=== PATIENT | female | born 1985 | race Hispanic/Latino ===

== ENCOUNTER 2016-07-09 10:30 | Inpatient (IN) | payer OTHER ==
--- NOTE | 2016-07-09 11:34 | Emergency Department Report ---
Stated Complaint: CATHETER PULLED OUT Time Seen by Provider: 07/09/16 11:29 - HPI History of Present Illness: Patient reports her left nephrostomy catheter was caught between the door as she slammed it last night. She also c/o hematuria, fever, abdominal and back pain, N/V and right leg pain that started yesterday. - ROS Review of Systems: all other systems are unremarkable except for documentation in HPI - Exam Physical Exam: Gen: well nourished and developed, NAD, uncomfortable Abd: soft, nondistended, diffuse tenderness, bowel sounds present, no rebound, guarding or rigid MSE screening note: Focused history and physical exam performed. Due to findings the following was ordered: laboratory studies ordered ED Disposition for MSE Condition: Stable
[2016-07-09 11:57] LABS: Basophils % (Auto) 0.7 % (0.0-1.8); Eosinophils % (Auto) 0.6 % (0.0-4.3); Hematocrit 38.2 % (30.3-42.9); Hemoglobin 12.3 gm/dl (10.1-14.3); Mean Corpuscular HGB Conc 32 % (30-34); Mean Corpuscular Hemoglobin 27 pg (28-32); Mean Corpuscular Volume 83 fl (79-97); Platelet Count 246 K/mm3 (140-440); Red Blood Count 4.61 M/mm3 (3.65-5.03)
[2016-07-09] MEDS ORDERED: ZOFRAN ODT ONE (12:07)
[2016-07-09] MEDS ORDERED: ZOFRAN ODT PO ONE (12:09)
[2016-07-09 12:11] LABS: Alanine Aminotransferase 7 units/L (7-56); Albumin 3.5 g/dL (3.9-5); Albumin/Globulin Ratio 0.9 %; Alkaline Phosphatase 81 units/L (35-129); Anion Gap 19 mmol/L; BUN/Creatinine Ratio 11.25; Bilirubin,Total 0.5 mg/dL (0.1-1.2); Blood Urea Nitrogen 9 mg/dL (7-17); Calcium 8.7 mg/dL (8.4-10.2); Carbon Dioxide 22 mmol/L (22-30); Chloride 97.7 mmol/L (98-107); Glucose 162 mg/dL (65-100); Lipase 15 units/L (13-60); Potassium 3.2 mmol/L (3.6-5.0); Sodium 135 mmol/L (137-145); Total Protein 7.4 g/dL (6.3-8.2)
[2016-07-09 13:27] LABS: Bacteria,Urine 1+ /HPF (Negative); Bilirubin,Urine NEG (Negative); Blood,Urine MOD (Negative); Ketones,Urine NEG (Negative); Leukocyte Esterase,Urine LG (Negative); Mucus,Urine 2+ /HPF; Nitrite,Urine POS (Negative); Urobilinogen,Urine < 2.0 mg/dL (<2.0)
[2016-07-09 13:33] LABS: WBC,Urine > 182.0 /HPF (0.0-6.0)
[2016-07-09] MEDS ORDERED: TYLENOL ONE (21:23)
[2016-07-09] MEDS ORDERED: ZOFRAN IV ONE (21:41)
[2016-07-09] MEDS ORDERED: SUBLIMAZE IV ONE ×2 (21:41→23:52)
[2016-07-09] MEDS ORDERED: LEVAQUIN 750MG/150ML 150 ML IV ONE (21:42)
--- NOTE | 2016-07-09 21:55 | Emergency Department Report ---
HPI - General Chief Complaint: Urogenital-Female Time Seen by Provider: 07/09/16 21:27 - HPI HPI: Room 16 The patient is a 30-year-old female presenting with a chief complaint of left flank pain. The patient had a history of obstructive hydronephrosis and subsequently had a left nephrostomy tube placed by Dr. Wood 06/17/2016. The patient states she has not followed up with a urologist since her discharge from the hospital. The patient states last night at 20:30 her nephrostomy bag accidentally got caught on a door and pulled her nephrostomy tube. The patient states she immediately had pain at the nephrostomy tube site but it never resolved. The patient now complains of pain in bilateral flanks. Patient denies any history of fever. The patient gives her pain a score of 10/10 Location: Bilateral flanks Duration: Romario since 20:30 last night Quality: Sharp Severity: 10/10 Modifying factors: Unknown Context: [see above] Mode of transportation: EMS ED Past Medical Hx - Past Medical History Hx Kidney Stones: Yes Additional medical history: Gallbladder - Surgical History Additional Surgical History: ECTOPIC --salpingectomy; renal stent. Left nephrostomy tube placed by Dr. Wood 06/17/2016 - Family History Family history: no significant - Social History Smoking Status: Current Every Day Smoker (1/2 pack per day) Substance Use Type: None - Medications Home Medications: Home Medications Medication Instructions Recorded Confirmed Last Taken Type Ciprofloxacin HCl [Ciprofloxacin 500 mg PO BID #20 tablet 06/20/16 Unknown Rx TAB] HYDROcodone/APAP 5-325 [[place] 1 each PO Q6HR PRN #18 tablet 06/20/16 Unknown Rx 5/325] Sennosides/Docusate Sodium 1 each PO BID #14 tablet 06/20/16 Unknown Rx [Sennosides-Docusate Sodium Tab] ED Review of Systems ROS: Stated complaint: CATHETER PULLED OUT Other details as noted in HPI Comment: All other systems reviewed and negative Constitutional: denies: chills, fever Eyes: denies: eye pain, eye discharge, vision change ENT: denies: ear pain, throat pain Respiratory: denies: cough, shortness of breath, wheezing Cardiovascular: denies: chest pain, palpitations Endocrine: no symptoms reported Gastrointestinal: abdominal pain Genitourinary: other Musculoskeletal: back pain Skin: denies: rash, lesions Neurological: denies: headache, weakness, paresthesias Psychiatric: denies: anxiety, depression Hematological/Lymphatic: denies: easy bleeding, easy bruising Physical Exam - Physical Exam Vital Signs: Vital Signs 07/09/16 07/09/16 07/09/16 11:22 20:33 21:42 Temperature 98.2 F 98.8 F Pulse Rate 109 H 115 H 120 H Respiratory 20 18 22 Rate Blood Pressure 121/80 115/69 Blood Pressure 142/125 [Left] O2 Sat by Pulse 96 99 98 Oximetry Physical Exam: GENERAL: The patient is well-developed well-nourished female lying on stretcher. In moderate discomfort. [] HEENT: Normocephalic. Atraumatic. Extraocular motions are intact. Patient has moist mucous membranes. NECK: Supple. Trachea Midline CHEST/LUNGS: Clear to auscultation. There is no respiratory distress noted. HEART/CARDIOVASCULAR: Regular. There is tachycardia. There is no gallop rub or murmur. ABDOMEN: Abdomen is soft, discomfort to palpation in the left lower quadrant. Patient has normal bowel sounds. There is no abdominal distention. SKIN: There is no rash. There is no diaphoresis. NEURO: The patient is awake, alert, and oriented. The patient is cooperative. The patient has normal speech MUSCULOSKELETAL: There is no evidence of acute injury. BACK: Left nephrostomy tube in place. There is no drainage bag present. Nephrostomy tube appears to be tied in a knot (the patient states she was not aware of this and she did not do it.) ED Course Vital Signs 07/09/16 07/09/16 07/09/16 11:22 20:33 21:42 Temperature 98.2 F 98.8 F Pulse Rate 109 H 115 H 120 H Respiratory 20 18 22 Rate Blood Pressure 121/80 115/69 Blood Pressure 142/125 [Left] O2 Sat by Pulse 96 99 98 Oximetry - Consultations Consultation #1: 07/09/16 23:45 Urology paged- case discussed with Dr. Avalos 07/10/16 00:06 ED Medical Decision Making - Lab Data Result diagrams: 07/09/16 11:45 07/09/16 11:36 Laboratory Tests 07/09/16 07/09/16 07/09/16 11:36 11:45 11:45 WBC 14.0 H RBC 4.61 Hgb 12.3 Hct 38.2 MCV 83 MCH 27 L MCHC 32 RDW 17.0 H Plt Count 246 Lymph % (Auto) 13.6 Mcdowell % (Auto) 4.6 Eos % (Auto) 0.6 Baso % (Auto) 0.7 Lymph # 1.9 Mcdowell # 0.6 Eos # 0.1 Baso # 0.1 Seg Neutrophils % 80.5 H Seg Neutrophils # 11.2 H Sodium 135 L Potassium 3.2 L Chloride 97.7 L Carbon Dioxide 22 Anion Gap 19 BUN 9 Creatinine 0.8 Estimated GFR > 60 BUN/Creatinine Ratio 11.25 Glucose 162 H Calcium 8.7 Total Bilirubin 0.5 AST 9 ALT 7 Alkaline Phosphatase 81 Total Protein 7.4 Albumin 3.5 L Albumin/Globulin Ratio 0.9 Lipase 15 HCG, Quant < 2 Urine Color Urine Turbidity Urine pH Ur Specific Bonnie Urine Protein Urine Glucose (UA) Urine Ketones Urine Blood Urine Nitrite Urine Bilirubin Urine Urobilinogen Ur Leukocyte Esterase Urine WBC (Auto) Urine RBC (Auto) U Epithel Cells (Auto) Urine Bacteria (Auto) Urine Mucus 07/09/16 12:52 WBC RBC Hgb Hct MCV MCH MCHC RDW Plt Count Lymph % (Auto) Mcdowell % (Auto) Eos % (Auto) Baso % (Auto) Lymph # Mcdowell # Eos # Baso # Seg Neutrophils % Seg Neutrophils # Sodium Potassium Chloride Carbon Dioxide Anion Gap BUN Creatinine Estimated GFR BUN/Creatinine Ratio Glucose Calcium Total Bilirubin AST ALT Alkaline Phosphatase Total Protein Albumin Albumin/Globulin Ratio Lipase HCG, Quant Urine Color Yellow Urine Turbidity Cloudy Urine pH 6.0 Ur Specific Bonnie 1.018 Urine Protein 100 mg/dl Urine Glucose (UA) Neg Urine Ketones Neg Urine Blood Mod Urine Nitrite Pos Urine Bilirubin Neg Urine Urobilinogen < 2.0 Ur Leukocyte Esterase Lg Urine WBC (Auto) > 182.0 H Urine RBC (Auto) 178.0 U Epithel Cells (Auto) 43.0 H Urine Bacteria (Auto) 1+ Urine Mucus 2+ - Radiology Data Radiology results: report reviewed (CT abdomen and pelvis), image reviewed (CT abdomen pelvis) CT abdomen and pelvis (read by radiologist)-left nephrostomy tube is identified and has a proper position of the pigtail. No hydronephrosis is noted. Mild hydroureter down to a 7 mm stone just above the left ureterovesicular junction. Bilateral renal calculi are noted. - Differential Diagnosis nephrostomy tube displacement, pyelonephritis Critical care attestation.: If time is entered above; I have spent that time in minutes in the direct care of this critically ill patient, excluding procedure time. ED Disposition Clinical Impression: Acute pyelonephritis, Kidney stone, Obstructive uropathy, Leukocytosis, Tachycardia Disposition: OP ADMITTED IP TO THIS HOSP Is pt being admited?: Yes Does the pt Need Aspirin: No Condition: Fair Referrals: PRIMARY CARE, [Primary Care Provider] - 3-5 Days Time of Disposition: 23:56 (hospitalist notified)
[2016-07-09] MEDS ORDERED: BENADRYL IV ONE (22:21)
--- NOTE | 2016-07-09 23:26 | Cat Scan Report ---
FINAL REPORT PROCEDURE: CT ABDOMEN PELVIS WO CON TECHNIQUE: Computerized axial tomography of the abdomen and pelvis was performed without intravenous contrast. This study is performed without intravascular contrast material and its sensitivity for abdominal and pelvic pathology, including neoplasms, inflammation, abscess, free fluid, thrombosis, arterial dissection and infarction, is reduced compared with a contrast enhanced study. HISTORY: accidentally pulled left nephrostomy tube. Pain COMPARISON: 06/17/2016 FINDINGS: Visualized lower thorax: There is mild atelectasis in the right lower lung.. Liver: Normal size and attenuation. Spleen: Normal size and attenuation. Gallbladder and biliary system: Normal. Pancreas: Normal. Adrenals: Normal. Kidneys: There is a left nephrostomy tube identified. The positioning of the pigtail is appropriate. No hydronephrosis is seen at this time. Catheter is identified extending from the left posterior flank region. Minimal soft tissue swelling at the catheter exit is noted. There are few small calcifications in the corticomedullary region of the left kidney these measure between 1 and 3 millimeters. Slight prominence of the left ureter is identified down to a 7 millimeter calcification near the left ureteral vesical junction. The right renal size is normal. There are few parapelvic cysts surround the right collecting system. There are few small 1-2 millimeter calcifications in the corticomedullary region of the right kidney. These have not changed.. GI tract: Normal. Lymph nodes and mesentery: Normal. Vasculature: Normal. Bladder: Within the urinary bladder there is a large calcification posteriorly. This has not changed and may represent a large bladder calculi.. Reproductive organs: Normal. Peritoneum: No free fluid. Musculoskeletal structures: No significant abnormality. Other: None. IMPRESSION: Left nephrostomy tube is identified and has a proper position of the pigtail. No hydronephrosis is noted. Mild hydroureter down to a 7 millimeter stone just above the left ureteral vesical junction. Bilateral renal calculi are noted as discussed..
[2016-07-09] MEDS ORDERED: NACL 0.9% 1000 ML 1,000 ML IV ONE (23:45)
[2016-07-10] MEDS ORDERED: MORPHINE IV ONE (00:06)
[2016-07-10] MEDS ORDERED: MORPHINE ONE (00:15)
--- NOTE | 2016-07-10 00:46 | History and Physical Report ---
History of Present Illness Date of examination: 07/10/16 History of present illness: 30-year-old woman with a history of kidney stones, stent placement comes to the emergency room with complaints of nausea vomiting, fever and chills. Patient has a left nephrostomy tube, she states that the bag was caught in the car door , it was ripped. This was replaced in the emergency room Patient denies chest pain, palpitation, shortness of breath, cough, abdominal pain, hematochezia, dysuria, frequency, focal weakness, dysarthria,polydipsia polyuria, hot or cold intolerance, easy bruisability, or rash or bleeding from mucosal membrane, rhinorrhea, epistaxis, earache, tinnitus, blurry vision, eye discharge, anxiety, depression. Other review of systems negative PAST SURGICAL HISTORY: None SOCIAL HISTORY: The today, no alcohol or drugs FAMILY HISTORY: Hypertension Medications and Allergies Allergies Allergy/AdvReac Type Severity Reaction Status Date / Time amoxicillin [Amoxicillin] Allergy Hives Verified 01/21/15 20:30 ketorolac tromethamine Allergy Hives Verified 10/13/15 14:48 [From Toradol] Home Medications Medication Instructions Recorded Confirmed Last Taken Type No Known Home Medications [No 07/10/16 07/10/16 Unknown History Reported Home Medications] Exam - Physical Exam Narrative exam: Gen. appearance: Patient lying in bed, no apparent distress HEENT: Normocephalic, atraumatic, pupils equally round and reactive to light, extraocular movement intact, and no sclericterus,. No JVD or thyromegaly or nodule,neck supple, no carotid bruit ,mucous membranes moist, no exudate or erythema Heart: S1, S2, regular rate and rhythm Lungs: Clear to auscultation bilaterally, breathing comfortable Abdomen: Positive bowel sounds, nontender, nondistended, no organomegaly Extremity: No edema, cyanosis, clubbing Skin: No rash, nodules, warm, dry Neuro: Oriented 3, cranial nerves II-12 intact, speech is fluent, motor and sensory intact - Constitutional Vitals: Temp Pulse Resp BP Pulse Ox 98.8 F 120 H 18 142/125 98 07/09/16 20:33 07/09/16 21:42 07/10/16 00:23 07/09/16 21:42 07/09/16 21:42 Results - Labs CBC & Chem 7: 07/09/16 11:45 07/09/16 11:36 Labs: Abnormal lab results 07/09/16 07/09/16 07/09/16 Range/Units 11:36 11:45 12:52 WBC 14.0 H (4.5-11.0) K/mm3 MCH 27 L (28-32) pg RDW 17.0 H (13.2-15.2) % Seg Neutrophils % 80.5 H (40.0-70.0) % Seg Neutrophils # 11.2 H (1.8-7.7) K/mm3 Sodium 135 L (137-145) mmol/L Potassium 3.2 L (3.6-5.0) mmol/L Chloride 97.7 L (98-107) mmol/L Glucose 162 H (65-100) mg/dL Albumin 3.5 L (3.9-5) g/dL Urine WBC (Auto) > 182.0 H (0.0-6.0) /HPF U Epithel Cells (Auto) 43.0 H (0-13.0) /HPF - Imaging and Cardiology CT scan - abdomen: report reviewed CT scan - pelvis: report reviewed Assessment and Plan Acute pyelonephritis History of kidney stones with nephrostomy tube Admit to medicine Start IV fluid, IV antibiotics, follow cultures Start IV pain medication, DVT prophylaxis
--- NOTE | 2016-07-10 01:23 | Admit Criteria Form ---
Admission Criteria Documentation: PYELONEPHRITIS, ACUTE Clinical Indications for Admission to Inpatient Care (Place 'X' for any and all applicable criteria): Admission is indicated for ANY ONE of the following 1,2,3,4,5 [ ]I. Outpatient treatment has failed or is not feasible (eg, multidrug- resistant organism).5 [ ]II. beyond 24 weeks' gestation6 [ ]III. Hemodynamic instability [ ]IV. Immunocompromised state (eg, AIDS, diabetes, sickle cell disease) [ X]V. Known renal or urologic abnormalities (eg, indwelling catheter, structural abnormalities, renal calculi, urinary stent, previous urologic surgery) [ ]. Condition that requires drainage procedure, including ANY ONE of the following: [ ]a) Urinary obstruction [ ]b) Pyelitis [ ]c) Pyonephrosis [ ]d) Renal or perinephric abscess [ ]e) Emphysematous pyelonephritis 7 [ ]VII. Inpatient admission required rather than observation care (Also use Pyelonephritis, Acute: Observation Care Criteria as appropriate) because of ANY ONE of the following: [ ]a) High fever or infection requiring inpatient admission as indicated by ANY ONE of ,12 [ ]A. Documented bacteremia [ ]B. Temp>104.9 [id number] (oral) [ ]C. Temp>103.10F (oral) or <96.80F (rectal) that does not respond to all emergency treatment [ ]b) Acute renal failure [ ]c) Other significant finding or clinical condition judged not to be within the scope of observation care [ ]d) IV fluid to replace significant ongoing (eg, for over 24hrs) losses (> 3 L/m2 per day) [ ]e) Other condition,treatment or monitoring requiring inpatient admission The original [email or web address] content created by [employer] has been revised. The portions of the content which have been revised are identified through the use of italic text or in bold, and [facility] has neither reviewed nor approved the modified material. All other unmodified content is copyright [employer] [email or web address]. Please see references footnoted in the original [employer] [email or web address] edition 2016 Admission Criteria Met: Yes
[2016-07-10] MEDS ORDERED: MILK OF MAGNESIA PO PRN (01:33)
[2016-07-10] MEDS ORDERED: DULCOLAX PR PRN (01:33)
[2016-07-10] MEDS: TYLENOL PO PRN ×2 (02:31→16:15)
[2016-07-10] MEDS: MORPHINE IV PRN ×4 (06:36→20:34)
[2016-07-10] MEDS: NACL 0.9% 1000 ML 1,000 ML IV SCH ×2 (08:52→20:35)
[2016-07-10] MEDS: LOVENOX SUB-Q SCH (09:22)
--- NOTE | 2016-07-10 12:53 | Consultation ---
History of Present Illness - Reason for Consult Consult date: 07/10/16 - History of Present Illness 30-year-old woman with a history of kidney stones, stent placement comes to the emergency room with complaints of nausea vomiting, fever and chills. Patient has a left nephrostomy tube, she states that the bag was caught in the car door , it was ripped. This was replaced in the emergency room Patient denies chest pain, palpitation, shortness of breath, cough, abdominal pain, hematochezia, dysuria, frequency, focal weakness, dysarthria,polydipsia pt reports lots of leakage around tube urine clear today need nephrostogram & rads department to eval tubing Medications and Allergies Allergies Allergy/AdvReac Type Severity Reaction Status Date / Time amoxicillin [Amoxicillin] Allergy Hives Verified 01/21/15 20:30 ketorolac tromethamine Allergy Hives Verified 10/13/15 14:48 [From Toradol] Home Medications Medication Instructions Recorded Confirmed Last Taken Type No Known Home Medications [No 07/10/16 07/10/16 Unknown History Reported Home Medications] Active Meds: Active Medications Acetaminophen (Tylenol) 650 mg PO Q4H PRN PRN Reason: Pain MILD(1-3)/Fever >100.5/FINN Last Admin: 07/10/16 02:31 Dose: 650 mg Bisacodyl (Dulcolax) 10 mg [place] QDAY PRN PRN Reason: Constipation unrelieved by MOM Enoxaparin Sodium (Lovenox) 40 mg SUB-Q QDAY [facility] Last Admin: 07/10/16 09:22 Dose: 40 mg Levofloxacin/Dextrose (Levaquin 750mg/150ml) 150 mls @ 100 mls/hr IV Q24H [facility] Sodium Chloride (Nacl 0.9% 1000 Ml) 1,000 mls @ 75 mls/hr IV DIRECT [facility] Last Admin: 07/10/16 08:52 Dose: 75 mls/hr Magnesium Hydroxide (Milk Of Magnesia) 30 ml PO Q4H PRN PRN Reason: Constipation Morphine Sulfate (Morphine) 2 mg IV Q4H PRN PRN Reason: Pain, Moderate (4-6) Last Admin: 07/10/16 10:31 Dose: 2 mg Ondansetron HCl (Zofran) 4 mg IV Q8H PRN PRN Reason: N/V unrelieved by Reglan Exam - Constitutional Vitals: Temp Pulse Resp BP Pulse Ox 102.6 F H 123 H 20 91/56 99 07/10/16 02:00 07/10/16 02:00 07/10/16 02:31 07/10/16 02:00 07/10/16 09:45 Results - Labs CBC & Chem 7: 07/09/16 11:45 07/09/16 11:36
--- NOTE | 2016-07-10 14:00 | Consultation ---
REASON FOR CONSULTATION: Left kidney stone. REFERRING PHYSICIAN: Genevieve Ohara MD HISTORY OF PRESENT ILLNESS: This patient is a 30-year-old female, known to our service for kidney stones. She had a nephrostomy tube placed on 06/17/[address] Wood. She is to follow up with her primary urologist in [place], however, she incidentally pulled the nephrostomy tube, it was caught in a door, and concerned for dislodgement and increased pain. PAST MEDICAL HISTORY: Kidney stone. 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 HABITS: She is a half pack smoker a day. MEDICATIONS: Cipro and [place]. ALLERGIES: She has allergies to amoxicillin and Toradol. PHYSICAL EXAMINATION: GENERAL: She is alert and oriented. VITAL SIGNS: Temperature 98.8, respirations 22, pulse 120, BP 142/69. BACK: No CVA tenderness. At this time, tube appears, has a clean dressing and caryl colored urine. LABORATORY DATA: BUN and creatinine of 9 and 0.8 respectively. Hemoglobin and hematocrit of 12 and 34 respectively, white count 14,000, platelets 246,000. ASSESSMENT: Left flank plain, left ureteral stone, status post nephrostomy tube, possible dislodgement, leukocytosis with a white count 14,000. PLAN: Recommend nephrostomy tube for reevaluation. JOB# [id number] [facility]
--- NOTE | 2016-07-10 15:46 | Fluoroscopy Report ---
FLUOROSCOPY NEPHROSTOGRAM EXISTING LEFT: INDICATION: Fever. Evaluate position. COMPARISON: 07/09/2016 CT. FINDINGS: Left nephrostogram performed. 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 Approximately 3.5 cm lamellated urinary bladder calculus and also an approximately 1.1 cm adjacent left hemipelvic calcification corresponding to left distal ureteral calculus again noted. Subsequent hand injection of approximately 40 cc of Omnipaque 300 demonstrates left nephrostomy tube tip in the upper pole collecting system. Mild blunting of left renal calyces with slight fullness. Left proximal to mid ureter opacified with slightly prominent caliber. Approximately 4 cm left distal ureteral extent from about the level of the calculus distally upto the bladder base attenuated with intermittent emptying observed under real-time fluoroscopy. CONCLUSION: 1. Caliber attenuation of left distal ureter with approximately 1 cm slightly obstructing calculus again noted as also a large bladder calculus, similar to recent CT. 2. Patent left nephrostomy tube with its tip in the upper pole collecting system. Thank you for the opportunity to participate in this patient's care.
[2016-07-10] MEDS: ZOFRAN IV PRN (17:34)
[2016-07-10] MEDS ORDERED: LEVAQUIN 750MG/150ML 150 ML IV SCH (22:00)
[2016-07-11] MEDS: MORPHINE IV PRN ×6 (00:10→21:03)
[2016-07-11] MEDS: TYLENOL PO PRN ×2 (01:21→17:37)
[2016-07-11 06:14] LABS: Basophils % (Auto) 0.4 % (0.0-1.8); Eosinophils % (Auto) 0.1 % (0.0-4.3); Hematocrit 32.8 % (30.3-42.9); Hemoglobin 10.9 gm/dl (10.1-14.3); Mean Corpuscular HGB Conc 33 % (30-34); Mean Corpuscular Hemoglobin 27 pg (28-32); Mean Corpuscular Volume 82 fl (79-97); Platelet Count 167 K/mm3 (140-440); White Blood Count 9.4 K/mm3 (4.5-11.0)
[2016-07-11 06:29] LABS: Anion Gap 18 mmol/L; BUN/Creatinine Ratio 8.88; Blood Urea Nitrogen 8 mg/dL (7-17); Calcium 8.4 mg/dL (8.4-10.2); Carbon Dioxide 26 mmol/L (22-30); Chloride 97.3 mmol/L (98-107); Glucose 99 mg/dL (65-100); Potassium 3.3 mmol/L (3.6-5.0); Sodium 138 mmol/L (137-145)
[2016-07-11] MEDS: LOVENOX SUB-Q SCH (09:09)
[2016-07-11] MEDS: ZOFRAN IV PRN ×2 (09:10→17:37)
--- NOTE | 2016-07-11 14:04 | Event Note ---
Date: 07/11/16 30-year-old woman with a history of kidney stones, stent placement comes to the emergency room with complaints of nausea vomiting, fever and chills. Patient has a left nephrostomy tube, she states that the bag was caught in the car door , it was ripped. This was replaced in the emergency room Patient denies chest pain, palpitation, shortness of breath, cough, abdominal pain, hematochezia, dysuria, frequency, focal weakness, dysarthria,polydipsia pt reports lots of leakage around tube urine clear today nephrostogram - per tube in good position, contrast drains to distal stone pt stabe for discharge from gu standpoint f/u with her primary urologist
--- NOTE | 2016-07-11 16:41 | Progress Note ---
Assessment and Plan Assessment and plan: Sepsis likely due to acute pyelonephritis Acute left pyelonephritis History of kidney stones with nephrostomy tube placement Hypokalemia, acute due to poor oral intake Plan: nephrostogram - per tube in good position, contrast drains to distal stone Urology recommended to follow up outpatient with her urologist about the nephrostomy tube management Continue IV fluid, IV antibiotics, follow cultures, IV pain medication, DVT prophylaxis Patient still spiking fever today, If symptom improves plan to discharge tomorrow History Interval history: Patient seen and examined. Medical records and medication list reviewed. No acute event overnight noted by the RN. Patient continued to complain of left flank pain. Patient continued to spike fever. Noted nephrostomy to without the bag and continuously leaking urine Nephrostomy bag was placed in the ER but overnight she took it out Patient is demanding to take the nephrostomy tube output as she stated that, tube is causing her more pain Discussed plan of care at bedside with patient. Hospitalist Physical - Physical exam Narrative exam: GENERAL: Obese female lying on bed appeared to be in moderate discomfort. She is very tearful. HEENT: Normocephalic. Atraumatic. No conjunctival congestion or icterus. Patient has moist mucous membranes. NECK: Supple. Trachea midline. CHEST/LUNGS: Clear to auscultated bilaterally, breathing nonlabored. No wheezes crackles or rhonchi. HEART/CARDIOVASCULAR: Regular in rate and rhythm. S1 and S2 positive. ABDOMEN: Abdomen is soft, left flank tenderness. Patient has normal bowel sounds. Nephrostomy tube on the left side leaking urine. No blood or passive discharge noted. SKIN: There is no rash. Warm and dry. NEURO: No focal motor deficit. Follows command. MUSCULOSKELETAL: No joint effusion or tenderness. EXTRIMITY: No edema, no cyanosis or clubbing. PSYCH: Cooperative. - Constitutional Vitals: Temp Pulse Resp BP Pulse Ox 98.1 F 101 H 18 97/52 98 07/11/16 07:00 07/11/16 07:00 07/11/16 07:00 07/11/16 07:00 07/11/16 07:00 Results - Labs CBC & Chem 7: 07/11/16 05:32 07/11/16 05:32 Labs: Laboratory Last Values WBC 9.4 K/mm3 (4.5-11.0) 07/11/16 05:32 RBC 4.00 M/mm3 (3.65-5.03) 07/11/16 05:32 Hgb 10.9 gm/dl (10.1-14.3) 07/11/16 05:32 Hct 32.8 % (30.3-42.9) 07/11/16 05:32 MCV 82 fl (79-97) 07/11/16 05:32 MCH 27 pg (28-32) L 07/11/16 05:32 MCHC 33 % (30-34) 07/11/16 05:32 RDW 17.0 % (13.2-15.2) H 07/11/16 05:32 Plt Count 167 K/mm3 (140-440) 07/11/16 05:32 Lymph % (Auto) 23.0 % (13.4-35.0) 07/11/16 05:32 Kay % (Auto) 7.7 % (0.0-7.3) H 07/11/16 05:32 Eos % (Auto) 0.1 % (0.0-4.3) 07/11/16 05:32 Baso % (Auto) 0.4 % (0.0-1.8) 07/11/16 05:32 Lymph # 2.2 K/mm3 (1.2-5.4) 07/11/16 05:32 Kay # 0.7 K/mm3 (0.0-0.8) 07/11/16 05:32 Eos # 0.0 K/mm3 (0.0-0.4) 07/11/16 05:32 Baso # 0.0 K/mm3 (0.0-0.1) 07/11/16 05:32 Seg Neutrophils % 68.8 % (40.0-70.0) 07/11/16 05:32 Seg Neutrophils # 6.5 K/mm3 (1.8-7.7) 07/11/16 05:32 Sodium 138 mmol/L (137-145) 07/11/16 05:32 Potassium 3.3 mmol/L (3.6-5.0) L 07/11/16 05:32 Chloride 97.3 mmol/L (98-107) L 07/11/16 05:32 Carbon Dioxide 26 mmol/L (22-30) 07/11/16 05:32 Anion Gap 18 mmol/L 07/11/16 05:32 BUN 8 mg/dL (7-17) 07/11/16 05:32 Creatinine 0.9 mg/dL (0.7-1.2) 07/11/16 05:32 Estimated GFR > 60 ml/min 07/11/16 05:32 BUN/Creatinine Ratio 8.88 % 07/11/16 05:32 Glucose 99 mg/dL (65-100) 07/11/16 05:32 Calcium 8.4 mg/dL (8.4-10.2) 07/11/16 05:32 Total Bilirubin 0.5 mg/dL (0.1-1.2) 07/09/16 11:36 AST 9 units/L (5-40) 07/09/16 11:36 ALT 7 units/L (7-56) 07/09/16 11:36 Alkaline Phosphatase 81 units/L (35-129) 07/09/16 11:36 Total Protein 7.4 g/dL (6.3-8.2) 07/09/16 11:36 Albumin 3.5 g/dL (3.9-5) L 07/09/16 11:36 Albumin/Globulin Ratio 0.9 % 07/09/16 11:36 Lipase 15 units/L (13-60) 07/09/16 11:36 HCG, Quant < 2 mIU/mL (0-4) 07/09/16 11:45 Urine Color Yellow (Yellow) 07/09/16 12:52 Urine Turbidity Cloudy (Clear) 07/09/16 12:52 Urine pH 6.0 (5.0-7.0) 07/09/16 12:52 Ur Specific [place] 1.018 (1.003-1.030) 07/09/16 12:52 Urine Protein 100 mg/dl mg/dL (Negative) 07/09/16 12:52 Urine Glucose (UA) Neg mg/dL (Negative) 07/09/16 12:52 Urine Ketones Neg mg/dL (Negative) 07/09/16 12:52 Urine Blood Mod (Negative) 07/09/16 12:52 Urine Nitrite Pos (Negative) 07/09/16 12:52 Urine Bilirubin Neg (Negative) 07/09/16 12:52 Urine Urobilinogen < 2.0 mg/dL (<2.0) 07/09/16 12:52 Ur Leukocyte Esterase Lg (Negative) 07/09/16 12:52 Urine WBC (Auto) > 182.0 /HPF (0.0-6.0) H 07/09/16 12:52 Urine RBC (Auto) 178.0 /HPF (0.0-6.0) 07/09/16 12:52 U Epithel Cells (Auto) 43.0 /HPF (0-13.0) H 07/09/16 12:52 Urine Bacteria (Auto) 1+ /HPF (Negative) 07/09/16 12:52 Urine Mucus 2+ /HPF 07/09/16 12:52
[2016-07-11] MEDS: LEVAQUIN 750MG/150ML 150 ML IV SCH (17:38)
[2016-07-11] MEDS ORDERED: LEVAQUIN 750MG/150ML 150 ML IV SCH (20:00)
[2016-07-11] MEDS: AMBIEN PO PRN (23:34)
[2016-07-12] MEDS: MORPHINE IV PRN ×5 (03:48→22:11)
[2016-07-12] MEDS: ZOFRAN IV PRN ×3 (04:06→22:11)
[2016-07-12] MEDS: NACL 0.9% 1000 ML 1,000 ML IV SCH (09:04)
[2016-07-12] MEDS: LOVENOX SUB-Q SCH (09:20)
--- NOTE | 2016-07-12 10:40 | Discharge Summary ---
Providers - Providers Date of Admission: 07/10/16 00:40 Date of discharge: 07/14/16 Attending physician: STU AU Primary care physician: JEANIE HORVATH MD Hospitalization Condition: Fair Hospital course: Discharge diagnosis: Sepsis likely due to acute pyelonephritis Acute left pyelonephritis History of kidney stones with nephrostomy tube placement Hypokalemia, due to poor oral intake, replaced Disposition: DISCHARGED TO HOME OR SELFCARE Time spent for discharge: 32 minutes Core Measure Documentation - Palliative Care Palliative Care/ Comfort Measures: Not Applicable - Core Measures Any of the following diagnoses?: none Exam - Physical Exam Narrative exam: GENERAL: Obese female lying on bed appeared to be in moderate discomfort. She is very tearful. HEENT: Normocephalic. Atraumatic. No conjunctival congestion or icterus. Patient has moist mucous membranes. NECK: Supple. Trachea midline. CHEST/LUNGS: Clear to auscultated bilaterally, breathing nonlabored. No wheezes crackles or rhonchi. HEART/CARDIOVASCULAR: Regular in rate and rhythm. S1 and S2 positive. ABDOMEN: Abdomen is soft, left flank tenderness. Patient has normal bowel sounds. Nephrostomy tube on the left side leaking urine. No blood or passive discharge noted. SKIN: There is no rash. Warm and dry. NEURO: No focal motor deficit. Follows command. MUSCULOSKELETAL: No joint effusion or tenderness. EXTRIMITY: No edema, no cyanosis or clubbing. PSYCH: Cooperative. - Constitutional Vitals: Temp Pulse Resp BP Pulse Ox 99.2 F 88 18 108/58 97 07/12/16 08:00 07/12/16 08:00 07/12/16 08:00 07/12/16 08:00 07/12/16 08:00 Plan Activity: advance as tolerated Weight Bearing Status: Weight Bear as Tolerated Diet: low cholesterol, low salt Follow up with: PRIMARY CARE, [Primary Care Provider] - 3-5 Days Prescriptions: Levofloxacin [Levaquin] 750 mg PO QDAY #5 tablet oxyCODONE /ACETAMINOPHEN [Percocet 5/325] 1 tab PO Q6HR PRN #15 tablet PRN Reason: Pain Pending Studies Follow-up with urologist outpatient in a week.
[2016-07-12 10:59] LABS: Anion Gap 14 mmol/L; Blood Urea Nitrogen 7 mg/dL (7-17); Calcium 8.6 mg/dL (8.4-10.2); Carbon Dioxide 28 mmol/L (22-30); Glucose 130 mg/dL (65-100); Potassium 3.2 mmol/L (3.6-5.0); Sodium 141 mmol/L (137-145)
[2016-07-12] MEDS: KCL 10MEQ/100ML 100 ML IV SCH ×3 (11:23→15:50)
--- NOTE | 2016-07-12 16:02 | Event Note ---
Date: 07/12/16 Patient is getting very agitated once she was told that she'll be discharged home with outpatient follow-up. She states that she doesn't have any urologist , she had her nephrostomy tube placed in this hospital. She states that her nephrostomy bag got ripped by the cardoor and since then she is having continuous leaking of urine from the nephrostomy tube. Apparently she is screaming in her room and claiming that she'll make a complaint against this hospital for not taking care of her. I explained her again and again that, we will place a bag to drain her nephrostomy tube, but still she wants to speak with the urologist. Dr. Walton have seen her yesterday, recommended to follow up outpatient, but patient is not willing to do so. She was placed on a bag to drain her nephrostomy tube twice, once in the ER and another one in the floor, but she keeps pulling it off. Dr. Nina Jaramillo who placed a nephrostomy tube on May 2016 has been paged twice, but did not hear from him back yet.
[2016-07-12] MEDS: LEVAQUIN 750MG/150ML 150 ML IV SCH (18:15)
[2016-07-12] MEDS ORDERED: XYLOCAINE 2% INFILTRATI ONE (18:25)
--- NOTE | 2016-07-12 18:40 | Progress Note ---
Assessment and Plan 30-year-old female with left-sided nephrostomy tube for ureteral stone with infection. Urine is clear. Has some left flank pain from nephrostomy tube which can be expected. Reviewed nephrostomy films which demonstrate the nephrostomy pigtail has migrated from original positioning. Needs nephrostomy exchange. NPO after [employer] manager in AM for exchange The suture has been torn. Will re-suture nephrostomy tube to patient. Removed ostomy bag. Connected Luer-tanvir nephrostomy tube bag to the tube. Provided patient with extra bag. Recommend antibiotics given the open nature of the nephrostomy tube for prolonged period of time. Subjective Date of service: 07/12/16 Principal diagnosis: Left nephrostomy Interval history: 30-year-old female who broke nephrostomy tube bag in car door. Asked to evaluate patient. Clear urine exiting nephrostomy tube. Ostomy bag over nephrostomy tube. Objective - Constitutional Vitals: Vital Signs - 12hr 07/12/16 07/12/16 07/12/16 08:00 10:00 12:12 Temperature 99.2 F 98.4 F Pulse Rate [ 88 82 Left Radial] Respiratory 18 20 16 Rate Blood Pressure 108/58 102/58 [Left Arm] O2 Sat by Pulse 97 97 Oximetry General appearance: Present: no acute distress - EENT Eyes: EOM intact ENT: hearing intact - Respiratory Respiratory effort: normal - Gastrointestinal General gastrointestinal: Present: tender (left flank discomfort) - Psychiatric Psychiatric: appropriate mood/affect, cooperative - Labs CBC & Chem 7: 07/11/16 05:32 07/12/16 10:18 Labs: Abnormal lab results 07/12/16 Range/Units 10:18 Potassium 3.2 L (3.6-5.0) mmol/L Glucose 130 H (65-100) mg/dL
[2016-07-12] MEDS ORDERED: XYLOCAINE 1% 20 mL INFILTRATI ONE (19:04)
[2016-07-13] MEDS: MORPHINE IV PRN ×5 (02:30→20:18)
[2016-07-13] MEDS: NACL 0.9% 1000 ML 1,000 ML IV SCH (06:56)
--- NOTE | 2016-07-13 08:29 | Progress Note ---
Assessment and Plan Assessment and plan: Sepsis likely due to acute pyelonephritis Acute left pyelonephritis History of kidney stones with nephrostomy tube placement Hypokalemia, acute due to poor oral intake Plan: nephrostogram - contrast drains to distal stone, nephrostomy films which demonstrate the nephrostomy pigtail has migrated from original positioning Dr. Jaramillo will change the tube tomorrow Continue IV fluid, IV antibiotics, follow cultures, IV pain medication, DVT prophylaxis If symptom improves plan to discharge tomorrow after the procedure Microbiology 07/10/16 06:01 Peripheral/Venous Blood Culture - Preliminary NO GROWTH AFTER 48 HOURS 07/10/16 06:01 Peripheral/Venous Blood Culture - Preliminary NO GROWTH AFTER 48 HOURS 07/09/16 12:52 Urine,Clean Catch Urine Culture - Final History Interval history: Patient seen and examined. Medical records and medication list reviewed. No acute event overnight noted by the RN. Patient continued to complain of left flank pain. Noted nephrostomy to without the osteomy bag and continuously leaking urine Nephrostomy bag was placed in the ER but overnight she took it out, nurse placed another bag but complaints that this is still leacking Patient is demanding to take the nephrostomy tube output as she stated that, tube is causing her more pain dr. Jaramillo saw her today and recommended to change the tube as the pigtail of the tube seems to be little malpositioned Discussed plan of care at bedside with patient. Hospitalist Physical - Physical exam Narrative exam: GENERAL: Obese female lying on bed appeared to be in moderate discomfort. She is very tearful. HEENT: Normocephalic. Atraumatic. No conjunctival congestion or icterus. Patient has moist mucous membranes. NECK: Supple. Trachea midline. CHEST/LUNGS: Clear to auscultated bilaterally, breathing nonlabored. No wheezes crackles or rhonchi. HEART/CARDIOVASCULAR: Regular in rate and rhythm. S1 and S2 positive. ABDOMEN: Abdomen is soft, left flank tenderness. Patient has normal bowel sounds. Nephrostomy tube on the left side leaking urine. No blood or passive discharge noted. SKIN: There is no rash. Warm and dry. NEURO: No focal motor deficit. Follows command. MUSCULOSKELETAL: No joint effusion or tenderness. EXTRIMITY: No edema, no cyanosis or clubbing. PSYCH: Cooperative. - Constitutional Vitals: Temp Pulse Resp BP Pulse Ox 99.1 F 83 18 106/55 100 07/12/16 22:57 07/12/16 22:57 07/12/16 22:57 07/12/16 22:57 07/12/16 22:57 General appearance: Present: no acute distress Results - Labs CBC & Chem 7: 07/11/16 05:32 07/12/16 10:18 Labs: Laboratory Last Values WBC 9.4 K/mm3 (4.5-11.0) 07/11/16 05:32 RBC 4.00 M/mm3 (3.65-5.03) 07/11/16 05:32 Hgb 10.9 gm/dl (10.1-14.3) 07/11/16 05:32 Hct 32.8 % (30.3-42.9) 07/11/16 05:32 MCV 82 fl (79-97) 07/11/16 05:32 MCH 27 pg (28-32) L 07/11/16 05:32 MCHC 33 % (30-34) 07/11/16 05:32 RDW 17.0 % (13.2-15.2) H 07/11/16 05:32 Plt Count 167 K/mm3 (140-440) 07/11/16 05:32 Lymph % (Auto) 23.0 % (13.4-35.0) 07/11/16 05:32 Ray % (Auto) 7.7 % (0.0-7.3) H 07/11/16 05:32 Eos % (Auto) 0.1 % (0.0-4.3) 07/11/16 05:32 Baso % (Auto) 0.4 % (0.0-1.8) 07/11/16 05:32 Lymph # 2.2 K/mm3 (1.2-5.4) 07/11/16 05:32 Ray # 0.7 K/mm3 (0.0-0.8) 07/11/16 05:32 Eos # 0.0 K/mm3 (0.0-0.4) 07/11/16 05:32 Baso # 0.0 K/mm3 (0.0-0.1) 07/11/16 05:32 Seg Neutrophils % 68.8 % (40.0-70.0) 07/11/16 05:32 Seg Neutrophils # 6.5 K/mm3 (1.8-7.7) 07/11/16 05:32 Sodium 141 mmol/L (137-145) 07/12/16 10:18 Potassium 3.2 mmol/L (3.6-5.0) L 07/12/16 10:18 Chloride 102.0 mmol/L (98-107) 07/12/16 10:18 Carbon Dioxide 28 mmol/L (22-30) 07/12/16 10:18 Anion Gap 14 mmol/L 07/12/16 10:18 BUN 7 mg/dL (7-17) 07/12/16 10:18 Creatinine 0.7 mg/dL (0.7-1.2) 07/12/16 10:18 Estimated GFR > 60 ml/min 07/12/16 10:18 BUN/Creatinine Ratio 10.00 % 07/12/16 10:18 Glucose 130 mg/dL (65-100) H 07/12/16 10:18 Calcium 8.6 mg/dL (8.4-10.2) 07/12/16 10:18 Total Bilirubin 0.5 mg/dL (0.1-1.2) 07/09/16 11:36 AST 9 units/L (5-40) 07/09/16 11:36 ALT 7 units/L (7-56) 07/09/16 11:36 Alkaline Phosphatase 81 units/L (35-129) 07/09/16 11:36 Total Protein 7.4 g/dL (6.3-8.2) 07/09/16 11:36 Albumin 3.5 g/dL (3.9-5) L 07/09/16 11:36 Albumin/Globulin Ratio 0.9 % 07/09/16 11:36 Lipase 15 units/L (13-60) 07/09/16 11:36 HCG, Quant < 2 mIU/mL (0-4) 07/09/16 11:45 Urine Color Yellow (Yellow) 07/09/16 12:52 Urine Turbidity Cloudy (Clear) 07/09/16 12:52 Urine pH 6.0 (5.0-7.0) 07/09/16 12:52 Ur Specific [place] 1.018 (1.003-1.030) 07/09/16 12:52 Urine Protein 100 mg/dl mg/dL (Negative) 07/09/16 12:52 Urine Glucose (UA) Neg mg/dL (Negative) 07/09/16 12:52 Urine Ketones Neg mg/dL (Negative) 07/09/16 12:52 Urine Blood Mod (Negative) 07/09/16 12:52 Urine Nitrite Pos (Negative) 07/09/16 12:52 Urine Bilirubin Neg (Negative) 07/09/16 12:52 Urine Urobilinogen < 2.0 mg/dL (<2.0) 07/09/16 12:52 Ur Leukocyte Esterase Lg (Negative) 07/09/16 12:52 Urine WBC (Auto) > 182.0 /HPF (0.0-6.0) H 07/09/16 12:52 Urine RBC (Auto) 178.0 /HPF (0.0-6.0) 07/09/16 12:52 U Epithel Cells (Auto) 43.0 /HPF (0-13.0) H 07/09/16 12:52 Urine Bacteria (Auto) 1+ /HPF (Negative) 07/09/16 12:52 Urine Mucus 2+ /HPF 07/09/16 12:52
[2016-07-13] MEDS: LOVENOX SUB-Q SCH (10:21)
[2016-07-13] MEDS ORDERED: K-DUR PO ONE ×2 (11:00→15:00)
[2016-07-13] MEDS ORDERED: LEVAQUIN 500MG/100ML 100 ML IV ONE (13:01)
[2016-07-13] MEDS ORDERED: NACL 0.9% 500 ML IR ONE (13:01)
[2016-07-13] MEDS ORDERED: XYLOCAINE 1%/ EPI 1:100,000 INFILTRATI ONE (13:01)
[2016-07-13] MEDS: VERSED ONE ×2 (13:15→13:18)
[2016-07-13] MEDS ORDERED: BENADRYL ONE (13:15)
[2016-07-13] MEDS: SUBLIMAZE ONE ×2 (13:15→13:18)
--- NOTE | 2016-07-13 15:56 | Operative Report ---
Operative Report Operative Report: EXAM: FLUOROSCOPIC GUIDED EVALUATION OF NEPHROSTOMY TUBE, FLUOROSCOPIC GUIDED EXCHANGE OF NEPHROSTOMY TUBE CLINICAL INDICATION: PATIENT WITH AN OBSTRUCTING PROXIMAL 8MM LEFT URETERAL STONE AND RETRACTION OF HER PREVIOUSLY PLACED NEPHROSTOMY TUBE INTO A POSTERIOR SUPERIOR CALYX DATE: 07/13/2016 PROCEDURE: Following an explanation of the risks, benefits and alternatives; written informed consent was obtained. The patient was brought to the angiographic suite and placed in prone position on the examination table. Initial evaluation of the patient's indwelling nephrostomy tube demonstrated positioning of the patent portion of the prostate tube and posterior superior calyx a. The kidney demonstrates minimal hydronephrosis. No transit of contrast is identified passed the obstructing stone. The catheter was cut and a 0.035 guidewire advanced through the catheter and coiled within the renal pelvis. The catheter was then removed intact. A 4 [place] vertebral catheter was advanced over the guidewire and together the guidewire and catheter were advanced into the proximal ureter. The catheter was removed. A new 8 [place] pigtail nephrostomy tube was placed over the guidewire and advanced to position the pigtail within the central aspect of the renal pelvis. The guidewire was removed. The catheter was securely fastened of the skin surface using 2-0 Ethilon suture. Sterile dressings were then applied. The catheter was then placed to dependent drainage. The patient tolerated the procedure well. There were no immediate post procedure complications. Conscious sedation was performed under the guidance of radiologic nursing. Continuous cardiopulmonary monitoring was utilized. IMPRESSION: 1) Fluoroscopic guided evaluation of her nephrostomy tube demonstrates retraction of the nephrostomy tube to a posterior superior calyx with minimal hydronephrosis and an obstructing proximal left ureteral stone. 2 ) Fluoroscopic guided exchange of nephrostomy tube with placement of the pigtail within the central aspect of the renal pelvis. 3) The patient's plan of care was discussed with her urologist Dr. Burdick recommends that the patient follow-up with her as soon as possible
[2016-07-13] MEDS: LEVAQUIN 750MG/150ML 150 ML IV SCH (17:35)
[2016-07-13] MEDS: AMBIEN PO PRN (22:30)
[2016-07-13 23:31] VITALS: BP 92/52
[2016-07-14] MEDS: MORPHINE IV PRN ×2 (01:15→05:44)
--- NOTE | 2016-07-14 09:23 | Progress Note ---
Assessment and Plan Assessment and plan: Sepsis likely due to acute pyelonephritis Acute left pyelonephritis History of kidney stones with nephrostomy tube placement Hypokalemia, acute due to poor oral intake Plan: nephrostogram - contrast drains to distal stone, nephrostomy films which demonstrate the nephrostomy pigtail has migrated from original positioning Dr. Jaramillo will change the tube today Continue IV fluid, IV antibiotics, blood cultures negative, IV pain medication, DVT prophylaxis Dr Jaramillo recommended to monitor urine output after tube replacement If symptom improves plan to discharge tomorrow Microbiology 07/10/16 06:01 Peripheral/Venous Blood Culture - Preliminary NO GROWTH AFTER 48 HOURS 07/10/16 06:01 Peripheral/Venous Blood Culture - Preliminary NO GROWTH AFTER 48 HOURS 07/09/16 12:52 Urine,Clean Catch Urine Culture - Final History Interval history: Patient seen and examined. Medical records and medication list reviewed. No acute event overnight noted by the RN. Patient continued to complain of left flank pain. She will have nephrostomy tube replacemnt today. Hospitalist Physical - Physical exam Narrative exam: GENERAL: Obese female lying on bed appeared to be in moderate discomfort. She is very tearful. HEENT: Normocephalic. Atraumatic. No conjunctival congestion or icterus. Patient has moist mucous membranes. NECK: Supple. Trachea midline. CHEST/LUNGS: Clear to auscultated bilaterally, breathing nonlabored. No wheezes crackles or rhonchi. HEART/CARDIOVASCULAR: Regular in rate and rhythm. S1 and S2 positive. ABDOMEN: Abdomen is soft, left flank tenderness. Patient has normal bowel sounds. Nephrostomy tube on the left side leaking urine. No blood or passive discharge noted. SKIN: There is no rash. Warm and dry. NEURO: No focal motor deficit. Follows command. MUSCULOSKELETAL: No joint effusion or tenderness. EXTRIMITY: No edema, no cyanosis or clubbing. PSYCH: Cooperative. - Constitutional Vitals: Temp Pulse Resp BP Pulse Ox 98.9 F 91 H 18 92/52 98 07/13/16 23:00 07/13/16 23:00 07/13/16 23:00 07/13/16 23:00 07/13/16 23:00 General appearance: Present: no acute distress Results - Labs CBC & Chem 7: 07/11/16 05:32 07/12/16 10:18 Labs: Laboratory Last Values WBC 9.4 K/mm3 (4.5-11.0) 07/11/16 05:32 RBC 4.00 M/mm3 (3.65-5.03) 07/11/16 05:32 Hgb 10.9 gm/dl (10.1-14.3) 07/11/16 05:32 Hct 32.8 % (30.3-42.9) 07/11/16 05:32 MCV 82 fl (79-97) 07/11/16 05:32 MCH 27 pg (28-32) L 07/11/16 05:32 MCHC 33 % (30-34) 07/11/16 05:32 RDW 17.0 % (13.2-15.2) H 07/11/16 05:32 Plt Count 167 K/mm3 (140-440) 07/11/16 05:32 Lymph % (Auto) 23.0 % (13.4-35.0) 07/11/16 05:32 [place] % (Auto) 7.7 % (0.0-7.3) H 07/11/16 05:32 Eos % (Auto) 0.1 % (0.0-4.3) 07/11/16 05:32 Baso % (Auto) 0.4 % (0.0-1.8) 07/11/16 05:32 Lymph # 2.2 K/mm3 (1.2-5.4) 07/11/16 05:32 [place] # 0.7 K/mm3 (0.0-0.8) 07/11/16 05:32 Eos # 0.0 K/mm3 (0.0-0.4) 07/11/16 05:32 Baso # 0.0 K/mm3 (0.0-0.1) 07/11/16 05:32 Seg Neutrophils % 68.8 % (40.0-70.0) 07/11/16 05:32 Seg Neutrophils # 6.5 K/mm3 (1.8-7.7) 07/11/16 05:32 Sodium 141 mmol/L (137-145) 07/12/16 10:18 Potassium 3.2 mmol/L (3.6-5.0) L 07/12/16 10:18 Chloride 102.0 mmol/L (98-107) 07/12/16 10:18 Carbon Dioxide 28 mmol/L (22-30) 07/12/16 10:18 Anion Gap 14 mmol/L 07/12/16 10:18 BUN 7 mg/dL (7-17) 07/12/16 10:18 Creatinine 0.7 mg/dL (0.7-1.2) 07/12/16 10:18 Estimated GFR > 60 ml/min 07/12/16 10:18 BUN/Creatinine Ratio 10.00 % 07/12/16 10:18 Glucose 130 mg/dL (65-100) H 07/12/16 10:18 Calcium 8.6 mg/dL (8.4-10.2) 07/12/16 10:18 Total Bilirubin 0.5 mg/dL (0.1-1.2) 07/09/16 11:36 AST 9 units/L (5-40) 07/09/16 11:36 ALT 7 units/L (7-56) 07/09/16 11:36 Alkaline Phosphatase 81 units/L (35-129) 07/09/16 11:36 Total Protein 7.4 g/dL (6.3-8.2) 07/09/16 11:36 Albumin 3.5 g/dL (3.9-5) L 07/09/16 11:36 Albumin/Globulin Ratio 0.9 % 07/09/16 11:36 Lipase 15 units/L (13-60) 07/09/16 11:36 HCG, Quant < 2 mIU/mL (0-4) 07/09/16 11:45 Urine Color Yellow (Yellow) 07/09/16 12:52 Urine Turbidity Cloudy (Clear) 07/09/16 12:52 Urine pH 6.0 (5.0-7.0) 07/09/16 12:52 Ur Specific [place] 1.018 (1.003-1.030) 07/09/16 12:52 Urine Protein 100 mg/dl mg/dL (Negative) 07/09/16 12:52 Urine Glucose (UA) Neg mg/dL (Negative) 07/09/16 12:52 Urine Ketones Neg mg/dL (Negative) 07/09/16 12:52 Urine Blood Mod (Negative) 07/09/16 12:52 Urine Nitrite Pos (Negative) 07/09/16 12:52 Urine Bilirubin Neg (Negative) 07/09/16 12:52 Urine Urobilinogen < 2.0 mg/dL (<2.0) 07/09/16 12:52 Ur Leukocyte Esterase Lg (Negative) 07/09/16 12:52 Urine WBC (Auto) > 182.0 /HPF (0.0-6.0) H 07/09/16 12:52 Urine RBC (Auto) 178.0 /HPF (0.0-6.0) 07/09/16 12:52 U Epithel Cells (Auto) 43.0 /HPF (0-13.0) H 07/09/16 12:52 Urine Bacteria (Auto) 1+ /HPF (Negative) 07/09/16 12:52 Urine Mucus 2+ /HPF 07/09/16 12:52
[2016-07-14] MEDS ORDERED: LEVAQUIN PO SCH (17:00)
== END 2016-07-14 13:00 | disposition home or self-care (01) | DRG 872 ==
LOC: ED 10:30 → 3A 07-10 00:40
PROVIDERS: ADMIT Internal Medicine; ATTEND Internal Medicine
PROC: 0T25X0Z Change Drainage Device in Kidney, External Approach (ICD-10-PCS; principal; 2016-07-13)
DX: A41.9 Sepsis, unspecified organism (principal); N10 Acute pyelonephritis; N20.1 Calculus of ureter; F17.200 Nicotine dependence, unspecified, uncomplicated; E87.6 Hypokalemia; Z88.1 Allergy status to other antibiotic agents; Z88.8 Allergy status to other drugs, medicaments and biological substances; Z87.442 Personal history of urinary calculi; Z90.49 Acquired absence of other specified parts of digestive tract; Z93.6 Other artificial openings of urinary tract status; Z82.49 Family history of ischemic heart disease and other diseases of the circulatory system
CPT/HCPCS: 36415; 50435; 74176; 80048; 80053; 81001; 83690; 84702; 85025; 87040; 87086; 96361; 96365; 96375; 96376; C1729; C1751; C1769; J1200; J1650; J1956; J2250; J2270; J2405; J3010; J3480; J7030; Q0162; Q9967

== ENCOUNTER 2017-02-13 00:09 | Emergency (ER) | payer OTHER ==
[2017-02-13] MEDS ORDERED: TYLENOL ONE (00:33)
[2017-02-13] MEDS ORDERED: TYLENOL PO ONE ×2 (00:38→12:51)
[2017-02-13 10:52] LABS: Basophils % (Auto) 0.4 % (0.0-1.8); Eosinophils % (Auto) 0.1 % (0.0-4.3); Hematocrit 34.3 % (30.3-42.9); Hemoglobin 11.4 gm/dl (10.1-14.3); Mean Corpuscular HGB Conc 33 % (30-34); Mean Corpuscular Hemoglobin 29 pg (28-32); Mean Corpuscular Volume 86 fl (79-97); Platelet Count 183 K/mm3 (140-440); Red Blood Count 3.98 M/mm3 (3.65-5.03); Red Cell Distribution Width 16.4 % (13.2-15.2); White Blood Count 9.8 K/mm3 (4.5-11.0)
[2017-02-13] MEDS ORDERED: NACL 0.9% 1000 ML 1,000 ML IV ONE ×2 (10:52→14:19)
[2017-02-13] MEDS ORDERED: MORPHINE IV ONE (10:53)
[2017-02-13] MEDS ORDERED: FLOMAX PO ONE (10:53)
[2017-02-13] MEDS ORDERED: ZOFRAN IV ONE ×2 (10:53→14:19)
[2017-02-13] MEDS ORDERED: LEVAQUIN 750MG/150ML 750 MG/150 ML BAG IV ONE (10:56)
--- NOTE | 2017-02-13 10:59 | Emergency Department Report ---
HPI - General Chief Complaint: Abdominal Pain Time Seen by Provider: 02/13/17 10:52 - HPI HPI: PATIENT WITH H/O KIDNEY STONES, CAME TO ER WITH FEVER, RIGHT FLANK PAIN, FOR THE PAST THREE DAYS. NO CHEST PAIN OR SOB. PATIENT HAS NOT TAKEN ANY MEDS AT HOME FOR SYMPTOMS. PATIENT DENIES ANY ALLEVIATING OR EXACERBATING FACTORS. ED Past Medical Hx - Past Medical History Previous Medical History?: Yes Hx Congestive Heart Failure: No Hx Diabetes: No Hx Kidney Stones: Yes Hx Asthma: No Hx COPD: No Additional medical history: Gallbladder - Surgical History Past Surgical History?: Yes Additional Surgical History: ECTOPIC --salpingectomy; renal stent. Left nephrostomy tube placed by Dr. Wood 06/17/2016 - Social History Smoking Status: Current Every Day Smoker Substance Use Type: None - Medications Home Medications: Home Medications Medication Instructions Recorded Confirmed Last Taken Type Levofloxacin [Levaquin TAB] 500 mg PO QDAY #10 tablet 02/13/17 Unknown Rx ED Review of Systems ROS: Stated complaint: RT SIDE FLANK PAIN Other details as noted in HPI Comment: All other systems reviewed and negative Genitourinary: urgency Musculoskeletal: back pain Physical Exam - Physical Exam Vital Signs: Vital Signs 02/13/17 02/13/17 02/13/17 00:17 00:20 05:20 Temperature 102.7 F H 102.7 F H 98.4 F Pulse Rate 104 H 104 H 95 H Respiratory 20 20 Rate Blood Pressure 106/71 111/79 Blood Pressure 106/71 [Right] O2 Sat by Pulse 97 97 96 Oximetry 02/13/17 08:34 Temperature 100 F H Pulse Rate 103 H Respiratory 16 Rate Blood Pressure Blood Pressure 104/68 [Right] O2 Sat by Pulse 99 Oximetry Physical Exam: gen: alert and oriented x3 heent: perrla, eomi cv: rrr, nl s1, s2 lungs: cta bila abd: s,nt,nd, pos bs, RIGHT CVA TENDERNESS ext: no edema gu: pt refused neuro: no deficits psych: normal mood, ED Course Vital Signs 02/13/17 02/13/17 02/13/17 00:17 00:20 05:20 Temperature 102.7 F H 102.7 F H 98.4 F Pulse Rate 104 H 104 H 95 H Respiratory 20 20 Rate Blood Pressure 106/71 111/79 Blood Pressure 106/71 [Right] O2 Sat by Pulse 97 97 96 Oximetry 02/13/17 08:34 Temperature 100 F H Pulse Rate 103 H Respiratory 16 Rate Blood Pressure Blood Pressure 104/68 [Right] O2 Sat by Pulse 99 Oximetry ED Medical Decision Making - Lab Data Result diagrams: 02/13/17 10:35 02/13/17 10:35 Critical care attestation.: If time is entered above; I have spent that time in minutes in the direct care of this critically ill patient, excluding procedure time. ED Disposition Clinical Impression: UTI (urinary tract infection) Disposition: DC-01 TO HOME OR SELFCARE Is pt being admited?: No Does the pt Need Aspirin: No Condition: Stable Instructions: Abdominal Pain (ED) Prescriptions: Levofloxacin [Levaquin TAB] 500 mg PO QDAY #10 tablet Referrals: PRIMARY CARE, [Primary Care Provider] - 3-5 Days Forms: Work/School Release Form(ED)
[2017-02-13 11:08] LABS: Alanine Aminotransferase 7 units/L (7-56); Albumin 3.4 g/dL (3.9-5); Albumin/Globulin Ratio 0.9 %; Alkaline Phosphatase 64 units/L (35-129); Anion Gap 18 mmol/L; Blood Urea Nitrogen 14 mg/dL (7-17); Calcium 8.2 mg/dL (8.4-10.2); Carbon Dioxide 25 mmol/L (22-30); Chloride 97.3 mmol/L (98-107); Glucose 101 mg/dL (65-100); Sodium 137 mmol/L (137-145); Total Protein 7.2 g/dL (6.3-8.2)
[2017-02-13 11:15] LABS: Potassium 2.9 mmol/L (3.6-5.0)
[2017-02-13 11:22] LABS: Bacteria,Urine 1+ /HPF (Negative); Bilirubin,Urine NEG (Negative); Blood,Urine MOD (Negative); Ketones,Urine NEG (Negative); Leukocyte Esterase,Urine LG (Negative); Mucus,Urine FEW /HPF; Nitrite,Urine NEG (Negative); Urobilinogen,Urine < 2.0 mg/dL (<2.0)
[2017-02-13 11:24] LABS: WBC,Urine > 182.0 /HPF (0.0-6.0)
--- NOTE | 2017-02-13 12:07 | Cat Scan Report ---
CT OF THE ABDOMEN AND PELVIS WITHOUT CONTRAST HISTORY: Right flank pain. TECHNIQUE: Helical CT without contrast. Sagittal and coronal reformatted images. FINDINGS: The 8 mm distal left ureteral stone and large bladder stone have been removed since 07/09/16. There are multiple bilateral renal calyceal stones on today's exam. There is no evidence for ureteral stone or hydronephrosis. The bladder is unremarkable. The liver, biliary system, pancreas, spleen, adrenal glands, aorta, bowel loops and appendix are unremarkable. The uterus and adnexa are within normal limits. Heart size is normal. The lung bases are clear. No acute bony findings or suspicious bony lesion. IMPRESSION: Bilateral renal calyceal stones, nonobstructing. No ureteral stones or hydronephrosis.
[2017-02-13] MEDS ORDERED: TYLENOL PR ONE (12:27)
--- NOTE | 2017-02-13 13:41 | Admit Criteria Form ---
Admission Criteria Documentation: FEBRILE ILLNESS, WITHOUT FOCAL INFECTION Clinical Indications for Admission to Inpatient Care (Place 'X' for any and all applicable criteria): Admission is indicated for ANY ONE of the following (1)(2)(3): [ ] I. Bacteremia [ ]II. Suspected or identified specific infection requiring hospitalization (eg, meningitis, endocarditis) [ ]III. Hemodynamic instability [ ]IV. Altered mental status [ ]V. Failure or unavailability of outpatient antimicrobial treatment [ ]. Hypoxemia [ ]VII. Seizures [ ]VIII. High-risk febrile neutropenia [ ]IX. Need for parenteral antibiotic in patient who is likely to abuse vascular access device (eg, injection drug user) [A](7) [ ]X. Temperature greater than 104.9 degrees F (40.5 degrees C) (oral) [X ]XI. Inpatient admission required rather than observation care because of ANY ONE of the following: [ ]a) Specific infection identified that is too severe for outpatient treatment or observation care trial [ ]b) Metabolic disorder (eg, hypoglycemia, hyperglycemia, metabolic acidosis) that is severe or persistent [ ]c) Temperature greater than 103.1 degrees F (39.5 degrees C) ( oral) that is not responsive to observation care treatment [ ]d) IV fluid to replace significant ongoing (eg, for over 24 hours) losses (> 3 L/m2 per day) [ ]e) Supplemental oxygen or respiratory treatments for over 24 hours that is performable only in acute inpatient setting [ ]f) Parenteral nutrition regimen need that must be implemented on inpatient basis [ ]g) Strict or protective (eg, laminar flow) isolation [X ]h) Other condition, treatment or monitoring requiring inpatient admission Extended stay beyond goal length of stay may be needed for(1)(3) [ ]a) Sepsis or septic shock(22) [ ]b) Positive blood cultures [ ]c) Insufficient oral intake [ ]d) High-risk febrile neutropenia(29)(30) [ ]e) Continued fever and clinical instability [ ]f) Clinically active comorbid illness (e.g,heart failure, renal failure , diabetes) The original [facility] content created by [facility] has been revised. The portions of the content which have been revised are identified through the use of italic text or in bold, and [facility] has neither reviewed nor approved the modified material. All other unmodified content is copyright [facility]. Please see references footnoted in the original [facility] edition 2016
--- NOTE | 2017-02-13 14:41 | History and Physical Report ---
History of Present Illness Chief complaint: My stomach hurts History of present illness: 31 YO Female with Nicotine Dependence, nephrolithiasis presents to ED for evaluation. Pt has experienced abdominal discomfort for the past 3 days. Pt seen and evaluated in ED and found to have UTI, Pt treated with IVF, and IV abx , and discharged home with oral abx. Pt instructed to f/u pcp 1wk for f/u care and reevaluation. Past History Past Medical History: other (Nicotine Dependence, Nephrolithiasis) Past Surgical History: cholecystectomy, Other (left Nephrostomy tube, renal stent) Social history: , smoking. denies: alcohol abuse, prescription drug abuse, IV drug use Family history: hypertension Medications and Allergies Allergies Allergy/AdvReac Type Severity Reaction Status Date / Time amoxicillin [Amoxicillin] Allergy Hives Verified 01/21/15 20:30 ketorolac tromethamine Allergy Hives Verified 10/13/15 14:48 [From Toradol] Home Medications Medication Instructions Recorded Confirmed Last Taken Type Levofloxacin [Levaquin TAB] 500 mg PO QDAY #10 tablet 02/13/17 Unknown Rx Active Meds: Active Medications Sodium Chloride (Nacl 0.9% 1000 Ml) 1,000 mls @ 999 mls/hr IV BOLUS ONE Stop: 02/13/17 15:19 Last Admin: 02/13/17 14:28 Dose: 999 mls/hr Review of Systems All systems: negative Constitutional: fever, no chills, no sweats Ears, nose, mouth and throat: no ear pain, no ear discharge, no nasal congestion Breasts: no change in shape, no swelling Cardiovascular: no chest pain, no orthopnea, no palpitations Respiratory: no cough, no cough with sputum, no excessive sputum Gastrointestinal: abdominal pain, no nausea, no vomiting, no diarrhea Genitourinary Female: no dyspareunia, no pelvic pain, no flank pain Rectal: no pain, no incontinence, no bleeding Musculoskeletal: no neck stiffness, no neck pain Integumentary: no deferred, no rash Neurological: no head injury, no transient paralysis, no paralysis Psychiatric: no anxiety, no memory loss, no change in sleep habits Endocrine: no cold intolerance, no heat intolerance, no polyphagia Hematologic/Lymphatic: no easy bruising, no easy bleeding Allergic/Immunologic: no urticaria, no allergic rhinitis Exam - Constitutional Vitals: Temp Pulse Resp BP Pulse Ox 100.4 F H 98 H 22 104/56 96 02/13/17 11:30 02/13/17 11:30 02/13/17 12:59 02/13/17 11:30 02/13/17 11:30 General appearance: Present: no acute distress, well-nourished - EENT Eyes: Present: PERRL ENT: hearing intact, clear oral mucosa - Neck Neck: Present: supple, normal ROM - Respiratory Respiratory effort: normal Respiratory: bilateral: CTA - Cardiovascular Heart Sounds: Present: S1 & S2. Absent: rub, click - Extremities Extremities: pulses symmetrical, No edema Peripheral Pulses: within normal limits - Abdominal General gastrointestinal: Present: soft, non-tender, non-distended, normal bowel sounds Female genitourinary: Present: normal - Integumentary Integumentary: Present: clear, warm, dry - Musculoskeletal Musculoskeletal: gait normal, strength equal bilaterally - Psychiatric Psychiatric: appropriate mood/affect, intact judgment & insight - Neurologic Neurologic: CNII-XII intact, moves all extremities Results - Labs CBC & Chem 7: 02/13/17 10:35 02/13/17 10:35 Labs: Abnormal lab results 02/13/17 02/13/17 02/13/17 Range/Units 10:28 10:35 10:35 RDW 16.4 H (13.2-15.2) % Seg Neutrophils % 77.9 H (40.0-70.0) % Potassium 2.9 L* (3.6-5.0) mmol/L Chloride 97.3 L (98-107) mmol/L Glucose 101 H (65-100) mg/dL Calcium 8.2 L (8.4-10.2) mg/dL Albumin 3.4 L (3.9-5) g/dL Urine WBC (Auto) > 182.0 H (0.0-6.0) /HPF Assessment and Plan - Patient Problems (1) UTI (urinary tract infection) Current Visit: Yes Status: Acute Qualifiers: Urinary tract infection type: U Hematuria presence: H Indwelling urinary catheter type: I Encounter type: E Plan to address problem: IB abx x 1 dose, d/c home on oral abx. pt tolerating oral intake without difficulty. IVF replacement. (2) Abdominal pain Current Visit: Yes Status: Acute Qualifiers: Abdominal location: A Plan to address problem: CT Abdomen/Pelvis unremarkable, No acute findings.
[2017-02-13 16:01] VITALS: BP 98/58
== END 2017-02-13 17:06 | disposition home or self-care (01) ==
LOC: ED 00:09
DX: R50.9 Fever, unspecified (principal); R10.30 Lower abdominal pain, unspecified
CPT/HCPCS: 36415; 74176; 80053; 81001; 81025; 82140; 85025; 87040; 96361; 96365; 96375; 96376; 99284; J1956; J2270; J2405; J7030

== ENCOUNTER 2022-01-10 14:48 | Emergency (ER) | payer SELFPAY | END 2022-01-10 17:05 | disposition left against medical advice (07) | LOC: ED 14:48 | DX: F19.90 Other psychoactive substance use, unspecified, uncomplicated (principal); Z53.21 Procedure and treatment not carried out due to patient leaving prior to being seen by health care provider ==